=== PATIENT | female | born 1960 | race Caucasian/White ===

== ENCOUNTER 2024-04-24 08:59 | Inpatient (IN) | payer MEDICARE ==
[~2024-04-24] VITALS: Ht 152.4 cm; Wt 61.5 kg
[2024-04-24] MEDS ORDERED: ONDANSETRON 4MG TAB PO PRN (10:35)
[2024-04-24] MEDS ORDERED: BISACODYL 10MG SUPP PR PRN (10:35)
[2024-04-24] MEDS ORDERED: MOM 30ML SUSPENSION UDC PO PRN (10:35)
[2024-04-24] MEDS ORDERED: BISACODYL 5MG TAB PO PRN (10:35)
[2024-04-24] MEDS ORDERED: MAALOX 30 ML SUSP *UDC PO PRN (10:35)
[2024-04-24] MEDS ORDERED: MIRALAX *UNIT DOSE* 17GM PACKET PO PRN (10:35)
[2024-04-24 11:00] VITALS: BP 156/89; TEMP 97.3; O2SAT 96
[2024-04-24] MEDS ORDERED: ATOR40TA75 PO (11:39)
[2024-04-24] MEDS ORDERED: TRAZ-252 PO (11:39)
[2024-04-24] MEDS ORDERED: METO1TAB32 PO (11:39)
[2024-04-24] MEDS ORDERED: SYNT88TA2 PO (11:39)
[2024-04-24] MEDS ORDERED: LISI10TA22 PO (11:39)
[2024-04-24] MEDS ORDERED: ASPI81TA26 PO (11:39)
[2024-04-24] MEDS ORDERED: CLOP75TA99 PO (11:39)
[2024-04-24] MEDS ORDERED: TRAM50TA2 PO (11:39)
[2024-04-24] MEDS ORDERED: DULO60CA35 PO (11:39)
[2024-04-24] MEDS ORDERED: AMLO1TAB24 PO (11:39)
[2024-04-24] MEDS ORDERED: HOME MED LIST COMPLETE! XX SCH (11:55)
[2024-04-24 12:00] VITALS: BP 145/83; TEMP 98; O2SAT 97
[2024-04-24] MEDS ORDERED: **hydrALAZINE HCL** 25 MG TAB PO PRN (12:15)
[2024-04-24] MEDS: DULoxetine 30MG CAPSULE (CYMBALTA) PO SCH (13:26)
[2024-04-24] MEDS: DICLOFENAC EPOLAMINE 1.3% PATCH TOP ONE (13:26)
[2024-04-24 20:00] VITALS: BP 149/91; TEMP 97.8; O2SAT 97
[2024-04-24] MEDS: SENNA 8.6 MG TAB (SENOKOT) PO SCH (21:00)
[2024-04-24] MEDS: ATORVASTATIN 20 MG TAB PO SCH (21:02)
[2024-04-24] MEDS: HEPARIN SOD (PORCINE) 5000UNITS/ML 1ML VIAL/SYRINGE SC SCH (21:03)
[2024-04-24] MEDS: traZODone 50 MG TAB PO SCH (21:03)
[2024-04-25 04:00] VITALS: BP 118/59; TEMP 97.6; O2SAT 97
[2024-04-25] MEDS: LEVOTHYROXINE 88MCG TABLET (0.088 MG) PO SCH (05:49)
[2024-04-25 06:06] LABS: BASO # 0.1 10^3/uL (0.0-0.2); BASO % 0.4 % (0.0-1.0); EOS # 0.3 10^3/uL (0.0-0.5); HEMATOCRIT 38.2 % (36.0-47.0); HEMOGLOBIN 13.2 g/dl (12.0-15.5); LYMPH # 3.3 10^3/uL (1.5-5.0); LYMPH % 25.7 % (24.0-44.0); MEAN CORPUSCULAR HEMOGLOBIN 31.1 pg (27.0-33.0); MEAN CORPUSCULAR HGB CONC 34.6 g/dl (32.0-36.5); MEAN CORPUSCULAR VOLUME 90.1 fl (80.0-96.0); NEUTROPHILS # 8.1 10^3/uL (1.5-8.5); NEUTROPHILS % 63.5 % (36.0-66.0); PLATELET COUNT, AUTOMATED 231 10^3/uL (150-450); RED BLOOD COUNT 4.24 10^6/uL (4.00-5.40); WHITE BLOOD COUNT 12.8 10^3/uL (4.0-10.0)
[2024-04-25 06:46] LABS: BLOOD UREA NITROGEN 16 MG/DL (9-23); CALCIUM LEVEL 9.3 MG/DL (8.3-10.6); CARBON DIOXIDE LEVEL 24 MMOL/L (20-31); CHLORIDE LEVEL 108 MMOL/L (98-107); CREATININE FOR GFR 0.55 MG/DL (0.55-1.30); GLOMERULAR FILTRATION RATE > 60.0 (>45); GLUCOSE, FASTING 95 MG/DL (74-106); POTASSIUM SERUM 3.5 MMOL/L (3.5-5.1); SODIUM LEVEL 138 MMOL/L (136-145)
[2024-04-25] MEDS: ASPIRIN 81MG ENTERIC TABLET PO SCH (09:34)
[2024-04-25] MEDS: MULTIVITAMINS/MINERALS THERAP 1 TAB PO SCH (09:34)
[2024-04-25] MEDS: CLOPIDOGREL 75 MG TAB PO SCH (09:34)
[2024-04-25] MEDS: METOPROLOL SUCC *XL* 25MG TAB (TopROL *XL*) PO SCH (09:35)
[2024-04-25] MEDS: DICLOFENAC EPOLAMINE 1.3% PATCH TOP SCH (09:36)
[2024-04-25 12:00] VITALS: BP 122/72; TEMP 97.2; O2SAT 97
[2024-04-25 20:00] VITALS: BP 130/86; TEMP 97.4; O2SAT 96
[2024-04-25] MEDS: CYCLOBENZAPRINE 10MG TABLET PO PRN (21:00)
[2024-04-26 04:00] VITALS: BP 118/69; TEMP 96.7; O2SAT 96
[2024-04-26] MEDS: traMADol 50 MG TAB PO PRN (06:15)
[2024-04-26 12:00] VITALS: BP 138/80; TEMP 97.1; O2SAT 95
[2024-04-26 20:00] VITALS: BP 112/69; TEMP 97.3; O2SAT 96
[2024-04-27 04:00] VITALS: BP 128/73; TEMP 97.7; O2SAT 96
[2024-04-27 10:50] LABS: BASO # 0.1 10^3/uL (0.0-0.2); BASO % 0.4 % (0.0-1.0); EOS # 0.2 10^3/uL (0.0-0.5); EOS % 1.4 % (0.0-3.0); HEMATOCRIT 45.3 % (36.0-47.0); HEMOGLOBIN 15.3 g/dl (12.0-15.5); LYMPH # 2.7 10^3/uL (1.5-5.0); LYMPH % 18.9 % (24.0-44.0); MEAN CORPUSCULAR HGB CONC 33.8 g/dl (32.0-36.5); MEAN CORPUSCULAR VOLUME 91.9 fl (80.0-96.0); MONO # 1.1 10^3/uL (0.0-0.8); MONO % 7.7 % (2.0-8.0); NEUTROPHILS # 10.1 10^3/uL (1.5-8.5); NEUTROPHILS % 71.1 % (36.0-66.0); PLATELET COUNT, AUTOMATED 257 10^3/uL (150-450); RED BLOOD COUNT 4.93 10^6/uL (4.00-5.40); WHITE BLOOD COUNT 14.2 10^3/uL (4.0-10.0)
[2024-04-27 11:27] LABS: ALBUMIN 3.9 G/DL (3.2-5.2); ALKALINE PHOSPHATASE 110 U/L (46-116); ALT/SGPT 98 U/L (7.0-40); AST/SGOT 70 U/L (<34); BILIRUBIN,TOTAL 0.6 MG/DL (0.3-1.2); BLOOD UREA NITROGEN 19 MG/DL (9-23); CALCIUM LEVEL 10.2 MG/DL (8.3-10.6); CARBON DIOXIDE LEVEL 26 MMOL/L (20-31); CHLORIDE LEVEL 103 MMOL/L (98-107); CREATININE FOR GFR 0.64 MG/DL (0.55-1.30); GLOMERULAR FILTRATION RATE > 60.0 (>45); GLUCOSE, FASTING 98 MG/DL (74-106); POTASSIUM SERUM 3.7 MMOL/L (3.5-5.1); SODIUM LEVEL 135 MMOL/L (136-145); TOTAL PROTEIN 7.2 G/DL (5.7-8.2)
[2024-04-27 12:00] VITALS: BP 137/81; TEMP 97.3; O2SAT 98
[2024-04-27] MEDS: LevoFLOXacin 750 MG TABLET PO SCH (17:55)
[2024-04-27 20:00] VITALS: BP 117/71; TEMP 97.1; O2SAT 92
[2024-04-27] MEDS: ACETAMINOPHEN 325 MG TAB PO PRN (21:39)
[2024-04-28 04:00] VITALS: BP 108/62; TEMP 97.1; O2SAT 92
[2024-04-28 08:19] LABS: BASO # 0.1 10^3/uL (0.0-0.2); BASO % 0.5 % (0.0-1.0); EOS # 0.3 10^3/uL (0.0-0.5); EOS % 2.4 % (0.0-3.0); HEMATOCRIT 39.1 % (36.0-47.0); LYMPH # 2.3 10^3/uL (1.5-5.0); MEAN CORPUSCULAR HEMOGLOBIN 31.6 pg (27.0-33.0); MEAN CORPUSCULAR HGB CONC 33.8 g/dl (32.0-36.5); MEAN CORPUSCULAR VOLUME 93.5 fl (80.0-96.0); MONO % 9.8 % (2.0-8.0); NEUTROPHILS # 6.9 10^3/uL (1.5-8.5); NEUTROPHILS % 64.9 % (36.0-66.0); PLATELET COUNT, AUTOMATED 203 10^3/uL (150-450); RED BLOOD COUNT 4.18 10^6/uL (4.00-5.40); WHITE BLOOD COUNT 10.6 10^3/uL (4.0-10.0)
[2024-04-28 08:29] LABS: HEMOGLOBIN 13.2 g/dl (12.0-15.5)
[2024-04-28 12:00] VITALS: BP 114/66; TEMP 97.7; O2SAT 97
[2024-04-28 20:00] VITALS: BP 107/79; TEMP 97.4; O2SAT 96
[2024-04-28] MEDS: DICLOFENAC EPOLAMINE 1.3% PATCH TOP SCH (20:49)
[2024-04-29 04:00] VITALS: BP 110/74; TEMP 97.1; O2SAT 93
[2024-04-29 12:00] VITALS: BP 129/84; TEMP 97.1; O2SAT 97
[2024-04-29 20:00] VITALS: BP 102/66; TEMP 96.9; O2SAT 97
[2024-04-30 04:00] VITALS: BP 128/69; TEMP 97; O2SAT 99
[2024-04-30 08:33] LABS: BASO # 0.1 10^3/uL (0.0-0.2); BASO % 0.6 % (0.0-1.0); EOS # 0.2 10^3/uL (0.0-0.5); EOS % 2.2 % (0.0-3.0); HEMATOCRIT 41.2 % (36.0-47.0); HEMOGLOBIN 13.6 g/dl (12.0-15.5); LYMPH # 2.3 10^3/uL (1.5-5.0); MEAN CORPUSCULAR HEMOGLOBIN 31.2 pg (27.0-33.0); MEAN CORPUSCULAR VOLUME 94.5 fl (80.0-96.0); MONO # 0.9 10^3/uL (0.0-0.8); MONO % 8.3 % (2.0-8.0); NEUTROPHILS % 66.5 % (36.0-66.0); PLATELET COUNT, AUTOMATED 219 10^3/uL (150-450); RED BLOOD COUNT 4.36 10^6/uL (4.00-5.40); WHITE BLOOD COUNT 10.5 10^3/uL (4.0-10.0)
[2024-04-30 09:00] LABS: BLOOD UREA NITROGEN 16 MG/DL (9-23); CALCIUM LEVEL 9.6 MG/DL (8.3-10.6); CARBON DIOXIDE LEVEL 28 MMOL/L (20-31); CHLORIDE LEVEL 105 MMOL/L (98-107); GLOMERULAR FILTRATION RATE > 60.0 (>45); GLUCOSE, FASTING 110 MG/DL (74-106); POTASSIUM SERUM 4.4 MMOL/L (3.5-5.1); SODIUM LEVEL 137 MMOL/L (136-145)
[2024-04-30 12:00] VITALS: BP 121/78; TEMP 97.8; O2SAT 98
[2024-04-30 20:00] VITALS: BP 113/74; TEMP 97.4; O2SAT 96
[2024-05-01 04:00] VITALS: BP 119/73; TEMP 98.1; O2SAT 95
[2024-05-01 12:32] VITALS: BP 140/95; TEMP 98.2; O2SAT 97
[2024-05-01 20:28] VITALS: BP 99/58; TEMP 97.7; O2SAT 95
[2024-05-02 04:00] VITALS: BP 98/61; TEMP 98.1; O2SAT 96
[2024-05-02 12:00] VITALS: BP 118/72; TEMP 97.2; O2SAT 99
[2024-05-02 19:54] VITALS: BP 105/66; TEMP 97.3; O2SAT 96
[2024-05-03 04:00] VITALS: BP 116/65; TEMP 97.9; O2SAT 95
[2024-05-03 08:39] VITALS: BP 104/69
[2024-05-03 12:00] VITALS: BP 127/80; TEMP 98.3; O2SAT 97
[2024-05-03 20:00] VITALS: BP 103/70; TEMP 98; O2SAT 96
[2024-05-04 04:00] VITALS: BP 123/74; TEMP 97.3; O2SAT 99
[2024-05-04 12:00] VITALS: BP 115/71; TEMP 98; O2SAT 96
[2024-05-04 20:00] VITALS: BP 109/69; TEMP 98.2; O2SAT 97
[2024-05-05 04:00] VITALS: BP 102/56; TEMP 98; O2SAT 100
[2024-05-05 12:00] VITALS: BP 95/54; TEMP 97.3; O2SAT 98
[2024-05-05 20:00] VITALS: BP 110/77; TEMP 97.8; O2SAT 95
[2024-05-06 04:00] VITALS: BP 98/68; TEMP 97.3; O2SAT 100
[2024-05-06 12:00] VITALS: BP 106/66; TEMP 97.6; O2SAT 100
[2024-05-06 20:00] VITALS: BP 112/68; TEMP 98; O2SAT 98
[2024-05-07 04:00] VITALS: BP 114/64; TEMP 97.8; O2SAT 99
[2024-05-07 08:31] VITALS: BP 108/78
[2024-05-07 11:20] VITALS: BP 116/60; TEMP 97; O2SAT 98
[2024-05-07 12:00] VITALS: BP 121/96; TEMP 97.5; O2SAT 99
[2024-05-07 20:35] VITALS: BP 125/70; TEMP 97.9; O2SAT 96
[2024-05-08 04:00] VITALS: BP 111/69; TEMP 97.5; O2SAT 92
[2024-05-08 12:00] VITALS: BP 103/67; TEMP 98; O2SAT 100
[2024-05-08 20:00] VITALS: BP 99/61; TEMP 97.2; O2SAT 98
[2024-05-09 04:00] VITALS: BP 108/64; TEMP 97.1; O2SAT 99
[2024-05-09 12:00] VITALS: BP_SYST 110; BP_SYST 118; BP_DIAS 64; BP_DIAS 72; TEMP 97.6; TEMP 98; O2SAT 97
[2024-05-09 20:00] VITALS: BP 131/80; TEMP 97.9; O2SAT 100
[2024-05-10 04:00] VITALS: BP 133/83; TEMP 97.7; O2SAT 97
[2024-05-10 12:00] VITALS: BP 124/79; TEMP 98; O2SAT 96
[2024-05-10 20:26] VITALS: BP 113/71; TEMP 96.7; O2SAT 96
[2024-05-11 04:35] VITALS: BP 122/69; TEMP 96.5; O2SAT 96
[2024-05-11 07:08] VITALS: BP 108/62
[2024-05-11 12:00] VITALS: BP 128/78; TEMP 97.3; O2SAT 100
[2024-05-11 20:06] VITALS: BP 108/69; TEMP 96.4; O2SAT 95
[2024-05-12 04:00] VITALS: BP 112/76; TEMP 97.9; O2SAT 96
[2024-05-12 08:12] LABS: BASO % 0.6 % (0.0-1.0); EOS # 0.3 10^3/uL (0.0-0.5); HEMATOCRIT 41.5 % (36.0-47.0); HEMOGLOBIN 13.8 g/dl (12.0-15.5); LYMPH # 1.8 10^3/uL (1.5-5.0); LYMPH % 25.3 % (24.0-44.0); MEAN CORPUSCULAR HEMOGLOBIN 31.1 pg (27.0-33.0); MEAN CORPUSCULAR HGB CONC 33.3 g/dl (32.0-36.5); MEAN CORPUSCULAR VOLUME 93.5 fl (80.0-96.0); MONO # 0.6 10^3/uL (0.0-0.8); MONO % 8.2 % (2.0-8.0); NEUTROPHILS # 4.3 10^3/uL (1.5-8.5); NEUTROPHILS % 61.6 % (36.0-66.0); PLATELET COUNT, AUTOMATED 224 10^3/uL (150-450); RED BLOOD COUNT 4.44 10^6/uL (4.00-5.40); WHITE BLOOD COUNT 6.9 10^3/uL (4.0-10.0)
[2024-05-12 08:15] VITALS: BP 106/72
[2024-05-12 08:33] LABS: BLOOD UREA NITROGEN 13 MG/DL (9-23); CALCIUM LEVEL 9.8 MG/DL (8.3-10.6); CARBON DIOXIDE LEVEL 28 MMOL/L (20-31); CHLORIDE LEVEL 107 MMOL/L (98-107); CREATININE FOR GFR 0.71 MG/DL (0.55-1.30); GLOMERULAR FILTRATION RATE > 60.0 (>45); GLUCOSE, FASTING 103 MG/DL (74-106); POTASSIUM SERUM 4.5 MMOL/L (3.5-5.1); SODIUM LEVEL 140 MMOL/L (136-145)
[2024-05-12 12:00] VITALS: BP 119/71; TEMP 98.2; O2SAT 98
[2024-05-12 19:54] VITALS: BP 130/85; TEMP 97; O2SAT 97
[2024-05-13 04:00] VITALS: BP 107/70; TEMP 97.6; O2SAT 97
[2024-05-13 12:00] VITALS: BP 94/67; TEMP 97.7; O2SAT 100
[2024-05-13 20:00] VITALS: BP 118/66; TEMP 97.9; O2SAT 98
[2024-05-14 04:00] VITALS: BP 95/54; TEMP 97.3; O2SAT 97
[2024-05-14 12:00] VITALS: BP 108/64; TEMP 97.3; O2SAT 94
[2024-05-14 20:00] VITALS: BP 120/68; TEMP 96.6; O2SAT 83
[2024-05-15 04:00] VITALS: BP 117/70; TEMP 96.5; O2SAT 95
[2024-05-15] MEDS: METOPROLOL SUCC *XL* 12.5MG PER 1/2 TAB (TopROL *XL*) PO SCH (08:25)
[2024-05-15 12:24] VITALS: BP 123/80; TEMP 97.5; O2SAT 94
[2024-05-15 19:40] VITALS: BP 137/94; TEMP 97.9; O2SAT 90
[2024-05-16 04:00] VITALS: BP 138/80; TEMP 97.6; O2SAT 96
[2024-05-16] MEDS: SIMETHICONE 80MG CHEW TAB PO PRN (11:50)
[2024-05-16 12:00] VITALS: BP 149/68; TEMP 97.7; O2SAT 100
[2024-05-16 20:39] VITALS: BP 183/80; TEMP 96.7; O2SAT 100
[2024-05-16 20:40] VITALS: BP 142/86
[2024-05-17 04:52] VITALS: BP 115/69; TEMP 96.4; O2SAT 97
[2024-05-17 08:24] VITALS: BP 120/60
[2024-05-17 12:00] VITALS: BP 135/74; TEMP 97.5; O2SAT 96
[2024-05-17 19:45] VITALS: BP 150/88; TEMP 97.6; O2SAT 96
[2024-05-18 04:58] VITALS: BP 141/90; TEMP 96.2; O2SAT 94
[2024-05-18 12:00] VITALS: BP 144/78; TEMP 98.6; O2SAT 99
[2024-05-18] MEDS ORDERED: SYNT88TA2 PO (14:53)
[2024-05-18] MEDS ORDERED: CYMB1CAP5 PO (14:53)
[2024-05-18] MEDS ORDERED: ATOR40TA75 PO (14:53)
[2024-05-18] MEDS ORDERED: TRAZ-252 PO (14:53)
[2024-05-18] MEDS ORDERED: SENO8.6T5 PO (14:53)
[2024-05-18] MEDS ORDERED: METO1TAB32 PO (14:53)
[2024-05-18] MEDS ORDERED: ACET32TAB PO (14:53)
[2024-05-18] MEDS ORDERED: CLOP75TA99 PO (14:53)
[2024-05-18 20:00] VITALS: BP 119/72; TEMP 97.5; O2SAT 95
[2024-05-19 04:00] VITALS: BP 112/68; TEMP 97.1; O2SAT 99
[2024-05-19 12:00] VITALS: TEMP 98; O2SAT 98
[2024-05-19 20:00] VITALS: BP 122/70; TEMP 98; O2SAT 92
[2024-05-20 04:00] VITALS: BP 112/70; TEMP 96.8; O2SAT 95
[2024-05-20 12:00] VITALS: BP 144/94; TEMP 97.3; O2SAT 96
[2024-05-20 20:00] VITALS: BP 119/79; TEMP 97.9; O2SAT 94
[2024-05-21 04:30] VITALS: BP 129/64; TEMP 98.4; O2SAT 96
[2024-05-21 07:17] VITALS: BP 129/64
== END 2024-05-21 09:40 | DRG 56 ==
LOC: M PM&R 10:55
PROVIDERS: ADMIT Physical Medicine & Rehabilitation; ATTEND Physical Medicine & Rehabilitation
DX: I69.354 Hemiplegia and hemiparesis following cerebral infarction affecting left non-dominant side (principal); U07.1 COVID-19; R44.1 Visual hallucinations; I10 Essential (primary) hypertension; I69.398 Other sequelae of cerebral infarction; I69.391 Dysphagia following cerebral infarction; R13.10 Dysphagia, unspecified; E03.9 Hypothyroidism, unspecified; K59.00 Constipation, unspecified; F41.9 Anxiety disorder, unspecified; F32.A Depression, unspecified; M79.662 Pain in left lower leg; M25.532 Pain in left wrist; R00.0 Tachycardia, unspecified; R30.0 Dysuria; G43.709 Chronic migraine without aura, not intractable, without status migrainosus; M19.032 Primary osteoarthritis, left wrist; S52.512D Displaced fracture of left radial styloid process, subsequent encounter for closed fracture with routine healing; Z79.890 Hormone replacement therapy; Z79.899 Other long term (current) drug therapy